=== PATIENT | female | born 1985 | race Two or more races ===

== ENCOUNTER 2025-05-05 02:45 | Emergency (ER) | payer MEDICAID ==
[~2025-05-05] VITALS: Ht 165.1 cm; Wt 96.6 kg
[2025-05-05 03:25] LABS: Basophils # (auto) 0 10 ^3/uL (0-0.2); Basophils % (auto) 0.4 % (0.0-2.0); Eosinophils # (auto) 0.2 10 ^3/uL (0-0.8); Eosinophils % (auto) 2.7 % (0.0-7.0); Hematocrit 34.1 % (36.0-46.0); Hemoglobin 11.4 g/dL (12.2-16.2); Lymphocytes # (auto) 2.7 10 ^3/uL (0.4-5.4); Lymphocytes % (auto) 31.9 % (10.0-50.0); Mean Corpuscular Hemoglobin 27.5 pg (28.0-32.0); Mean Corpuscular Hgb Conc. 33.3 g/dL (32.0-36.0); Mean Corpuscular Volume 82.4 fL (80.0-100.0); Monocytes # (auto) 0.6 10 ^3/uL (0-1.3); Monocytes % (auto) 7.5 % (0.0-12.0); Neutrophils # (auto) 4.9 10 ^3/uL (1.6-8.6); Neutrophils % (auto) 57.5 % (37.0-80.0); Platelet Count (auto) 364 10^3/uL (140-450); Red Blood Cells 4.13 10^6/uL (4.0-5.20); Red Cell Distribution Width 16.5 % (11.8-14.3); White Blood Cell 8.5 10^3/uL (4.4-10.8)
[2025-05-05 03:37] LABS: Chloride 105 mmol/L (98-107); Potassium 3.7 mmol/L (3.5-5.1); Sodium 139 mmol/L (136-145)
[2025-05-05 03:38] LABS: Anion Gap 9 (5-15); Calcium 9.2 mg/dL (8.7-10.4); Carbon Dioxide 25 mmol/L (20-31)
[2025-05-05 03:43] LABS: BUN/Creatinine Ratio 12.5 (10.0-20.0); Blood Urea Nitrogen 12 mg/dL (9-23); Glucose 90 mg/dL (74-106)
[2025-05-05 03:44] LABS: INR 0.92 (0.9-1.15); Partial Thromboplastin Time 29.3 SEC (24.5-34.5); Prothrombin Time 9.8 sec (9.3-11.8)
[2025-05-05] MEDS: medroxyPROGESTERone ACETATE 5 MG TAB PO ONE (03:45)
[2025-05-05 03:53] LABS: Urine Bacteria None Seen /hpf (None Seen); Urine Blood 3+ /uL (Negative); Urine Clarity Clear (Clear); Urine Color Light-Orange (Yellow); Urine Mucus FEW (None Seen); Urine Protein, UAD TRACE (Negative); Urine Specific Gravity 1.034 (1.001-1.035); Urine Squamous Epithelial Cell FEW /hpf (<5); Urine Urobilinogen Normal (Negative); Urine WBC 3 /HPF (0-5)
--- NOTE | 2025-05-05 03:54 | ED.PDOC ---
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 Patient reports on symptoms being ongoing follow initial onset of her normal menstrual cycle two months ago. Goes through 2-3 pads per day. She states on having large clot productions, today, and having one isolated episode of lightheadedness, yesterday. Patient endorses on being on NuvaRing control for the past 3x months. Upcoming OBGYN appointment three weeks. Denies having any nausea, vomiting, urinary symptoms, or further associated symptoms. 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 History: Ovarian Cysts, Other (Ovarian torsion status post surgical intervention) Family History Family History: Reviewed,noncontributory to illness Social History Smoker: Non-Smoker Alcohol: Denies ETOH Use Drugs: Denies Drug Use Lives In: Home All Other Systems: Reviewed and Negative (Comprehensive review of symptoms are negative unless otherwise stated in HPI) Physical Exam General Appearance: No Apparent Distress, Obese HEENT: Normal ENT Inspection, Pharynx Normal, TMs Normal Neck: Full Range of Motion, Non-Tender, Normal, Normal Inspection Respiratory: Chest Non-Tender, Lungs Clear, No Accessory Muscle Use, No Respiratory Distress, Normal Breath Sounds Cardiovascular: No Edema, No JVD, No Murmur, No Gallop, Normal Peripheral Pulses, Regular Rate/Rhythm Breast Exam: Deferred Gastrointestinal: No Organomegaly, Non Tender, No Pulsatile Mass, Normal Bowel Sounds, Soft Genitalia: Deferred Pelvic: Deferred Rectal: Deferred Extremities: No calf tenderness, Normal capillary refill, Normal inspection, Normal range of motion, Non-tender, No pedal edema Musculoskeletal : Apperance: Normal Neurologic: Alert, 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 Was a procedure done?: No Differential Diagnosis (SPA EXPERIENCE COORDINATOR) Vaginal Bleeding: Blood Loss Anemia, Dysmenorrhea, Ectopic , Hormonal, Menorrhagia, Menometrorrhagia, Menstrual Bleeding, PID, UTI X-Ray, Labs, Meds, VS Vital Signs Date Time Temp Pulse Resp B/P (MAP) Pulse Ox O2 Delivery O2 Flow Rate FiO2 05/05/25 04:50 78 14 97 Room Air* 0 21 05/05/25 04:45 98.3 84 14 138/82 (100) 98 98.3 05/05/25 03:00 98.3 77 12 144/95 (111) 98 98.3 Lab Test 05/05/25 03:40 05/05/25 03:19 Range/Units Urine Color Light-orange Yellow Urine Clarity Clear Clear Urine pH 6.0 5.0-9.0 Urine Specific [place] 1.034 1.001-1.035 Urine Protein Trace H Negative Urine Ketones Trace Negative Urine Blood 3+ H Negative /uL Urine Nitrite Negative Negative Urine Bilirubin Negative Negative Urine Urobilinogen Normal Negative mg/dL Urine Leukocyte Esterase Negative Negative /uL Urine RBC 42 0 - 4 /hpf Urine Microscopic WBC 3 0-5 /HPF Urine Squamous Epithelial Cells Few <5 /hpf Urine Bacteria None seen None Seen /hpf Urine Mucus Few None Seen Urine Glucose Normal Normal mg/dL Urine Test Negative Negative White Blood Count 8.5 4.4-10.8 10^3/uL Red Blood Count 4.13 4.0-5.20 10^6/uL Hemoglobin 11.4 L 12.2-16.2 g/dL Hematocrit 34.1 L 36.0-46.0 % Mean Corpuscular Volume 82.4 80.0-100.0 fL Mean Corpuscular Hemoglobin 27.5 L 28.0-32.0 pg Mean Corpuscular Hemoglobin Concent 33.3 32.0-36.0 g/dL Red Cell Distribution Width 16.5 H 11.8-14.3 % Platelet Count 364 140-450 10^3/uL Mean Platelet Volume 6.8 L 6.9-10.8 fL Neutrophils (%) (Auto) 57.5 37.0-80.0 % Lymphocytes (%) (Auto) 31.9 10.0-50.0 % Monocytes (%) (Auto) 7.5 0.0-12.0 % Eosinophils (%) (Auto) 2.7 0.0-7.0 % Basophils (%) (Auto) 0.4 0.0-2.0 % Neutrophils # (Auto) 4.9 1.6-8.6 10 ^3/uL Lymphocytes # (Auto) 2.7 0.4-5.4 10 ^3/uL Monocytes # (Auto) 0.6 0-1.3 10 ^3/uL Eosinophils # (Auto) 0.2 0-0.8 10 ^3/uL Basophils # (Auto) 0 0-0.2 10 ^3/uL Nucleated Red Blood Cells 0.0 % Prothrombin Time 9.8 9.3-11.8 sec Prothrombin Time INR 0.92 0.9-1.15 Activated Partial Thromboplast Time 29.3 24.5-34.5 SEC Sodium Level 139 136-145 mmol/L Potassium Level 3.7 3.5-5.1 mmol/L Chloride Level 105 98-107 mmol/L Carbon Dioxide Level 25 20-31 mmol/L Anion Gap 9 5-15 Blood Urea Nitrogen 12 9-23 mg/dL Creatinine 0.96 0.550-1.02 mg/dL Glomerular Filtration Rate Calc 77 >90 mL/min BUN/Creatinine Ratio 12.5 10.0-20.0 Serum Glucose 90 74-106 mg/dL Calcium Level 9.2 8.7-10.4 mg/dL Time of 1ST Reevaluation: 03:30 Reevaluation 1ST: Unchanged Patient Education/Counseling: Diagnosis, Treatment, Need For Follow Up Family Education/Counseling: No Family Present Departure 1 Departure Time of Disposition: 04:30 Impression: Primary Impression: Dysfunctional uterine bleeding Disposition: HOME / SELF CARE / HOMELESS Condition: Stable e-Prescriptions Medroxyprogesterone Acetate (PROVERA) 5 Mg Tab 1 TAB PO DAILY for 10 Days, #10 TAB 11 Refills Prov: JASMIN ANTONIO MD 05/05/25 Discharged With: Self Critical Care Note Critical Care Time?: No Stability Stability form required: No Heart Score Heart Score: Heart Score Response (Comments) Value History N/A 0 EKG N/A 0 Age N/A 0 Risk Factors N/A 0 Troponin N/A 0 Total 0 I personally scribed for JASMIN ANTONIO MD ([email or web address]) on 05/05/25 at 03:54. Electronically submitted by Smith Calhoun ([email or web address]). JASMIN ANTONIO MD May 05, 2025 03:54
[2025-05-05] MEDS ORDERED: MEDR5TAB28 PO (04:23)
[2025-05-05 04:45] VITALS: BP 138/82; TEMP 98.3
[2025-05-05 04:50] VITALS: PULSE 78; RESP 14; O2SAT 97
== END 2025-05-05 05:09 | disposition home or self-care (01) ==
LOC: ER 02:45
DX: N93.8 Other specified abnormal uterine and vaginal bleeding (principal); Z98.51 Tubal ligation status; Z88.2 Allergy status to sulfonamides; Z98.890 Other specified postprocedural states
CPT/HCPCS: 36415; 80048; 81001; 81025; 85025; 85610; 85730

== ENCOUNTER 2025-05-16 04:57 | Emergency (ER) | payer MEDICAID ==
[~2025-05-16] VITALS: Ht 165.1 cm; Wt 94.0 kg
[~2025-05-16 04:57] MED LIST: MEDR5TAB28 PO
--- NOTE | 2025-05-16 06:47 | ED.PDOC ---
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 Patient states that she was seen on 05/05/2025 for vaginal bleeding and was prescribed Depo-Provera for 10 days. Patient reports that she completed the regiment of Depo-Provera, but is still having persistent vaginal bleeding. Patient mentions that she made an appointment with an CONTACT CENTRE SUPERVISOR, but was given an appointment on 06/04/2025. Chief Complaint: Vaginal Bleed Time Seen by MD: 06:26 Reviewed Notes: Nurses Notes, Medications, Allergies Allergies: Coded Allergies: Sulfa Antibiotics (Verified Allergy, Unknown, 05/05/25) Home Meds Active Scripts Medroxyprogesterone Acetate (PROVERA) 5 Mg Tab, 1 TAB PO DAILY for 10 Days, #10 TAB 11 Refills Prov:JASMIN ANTONIO MD 05/05/25 Information Source: Patient Mode of Arrival: Ambulatory Timing: Weeks Prehospital treatment: None Severity: Moderate Bleeding Quality: Bright Red Onset Of Mass/Bleeding: Spontaneous Last Consensual [place]: Unknown Control: Depo-Provera Past Medical History PAST MEDICAL HISTORY: Anemia Surgical History: BTL, PRICING LEAD History: Ovarian Cysts, Other Constitutional: denies: chills, diaphoresis, fatigue, fever, malaise, sweats, weakness, others EENTM: denies: blurred vision, double vision, ear bleeding, ear discharge, ear drainage, ear pain, ear ringing, eye pain, eye redness, hearing loss, mouth pain, mouth swelling, nasal discharge, nose bleeding, nose congestion, nose pain, photophobia, tearing, throat pain, throat swelling, voice changes, others Respiratory: denies: cough, hemoptysis, orthopnea, SOB at rest, shortness of breath, SOB with excertion, stridor, wheezing, others Cardiovascular: denies: chest pain, dizzy spells, diaphoresis, Dyspnea on exertion, edema, irregular heart beat, left arm pain, lightheadedness, palpitations, PND, syncope, others Gastrointestinal: reports: abdominal pain; denies: abdomen distended, blood streaked bowels, constipated, diarrhea, dysphagia, difficulty swallowing, hematemesis, melena, nausea, poor appetite, poor fluid intake, rectal bleeding, rectal pain, vomiting, others Genitourinary: reports: abnormal vagina bleeding; denies: burning, dyspareunia, dysuria, flank pain, frequency, hematuria, incontinence, pain, , vagina discharge, urgency, others Neurological: denies: dizziness, fainting, headache, left sided numbness, left sided weakness, numbness, paresthesia, pre-existing deficit, right sided numbness, right sided weakness, seizure, speech problems, tingling, tremors, wea kness, others Musculoskeletal: denies: back pain, gout, joint pain, joint swelling, muscle pain, muscle stiffness, neck pain, others Integumetry: denies: bruises, change in color, change in hair/nails, dryness, l aceration, lesions, lumps, rash, wounds, others Allergic/Immunocompromised: denies: Difficulty Healing, Frequent Infections, Hives, Itching, others Hematologic/Lymphatic: denies: anemia, blood clots, easy bleeding, easy bruising, swollen glands, others Endocrine: denies: excessive hunger, excessive sweating, excessive thirst, excessive urination, flushing, intolerance to cold, intolerance to heat, unexplained weight gain, unexplained weight loss, others Psychiatric: denies: anxiety, bipolar disorder, depression, hopeless, panic disorder, schizophrenia, sleepless, suicidal, others All Other Systems: Reviewed and Negative Physical Exam General Appearance: Moderate Distress, Normal HEENT: Normal ENT Inspection, Pharynx Normal, TMs Normal Neck: Full Range of Motion, Non-Tender, Normal, Normal Inspection Respiratory: Chest Non-Tender, Lungs Clear, No Accessory Muscle Use, No Respiratory Distress, Normal Breath Sounds Cardiovascular: No Edema, No JVD, No Murmur, No Gallop, Normal Peripheral Pulses, Regular Rate/Rhythm Breast Exam: Deferred Gastrointestinal: No Organomegaly, Non Tender, No Pulsatile Mass, Normal Bowel Sounds, Soft Genitalia: Deferred Pelvic: Deferred Rectal: Deferred Extremities: No calf tenderness, Normal capillary refill, Normal inspection, Normal range of motion, Non-tender, No pedal edema Musculoskeletal : Apperance: Normal Neurologic: Alert, roller hand II-XII nml as Tested, No Motor Deficits, Normal Affect, Normal Mood, No Sensory Deficits Cerebellar Function: Normal Reflexes: Normal Skin: Dry, Normal Color, Warm Peripheral Pulses: 3+ Radial (R), 3+ Radial (L) Lymphatic: No Adenopathy Was a procedure done? Was a procedure done?: No Differential Diagnosis (PRICING LEAD) Vaginal Bleeding: Menometrorrhagia, Menstrual Bleeding, Myomatous Uterus X-Ray, Labs, Meds, VS Vital Signs Date Time Temp Pulse Resp B/P (MAP) Pulse Ox O2 Delivery O2 Flow Rate FiO2 05/16/25 08:04 98.0 78 16 115/75 (88) 97 98.0 05/16/25 08:04 78 16 97 Room Air 05/16/25 05:17 98.0 93 16 124/74 (91) 96 98.0 Lab Test 05/16/25 07:39 Range/Units Urine Color Yellow Yellow Urine Clarity Turbid H Clear Urine pH 5.5 5.0-9.0 Urine Specific [place] 1.037 H 1.001-1.035 Urine Protein Trace H Negative Urine Ketones Trace Negative Urine Blood 2+ H Negative /uL Urine Nitrite Negative Negative Urine Bilirubin Negative Negative Urine Urobilinogen Normal Negative mg/dL Urine Leukocyte Esterase Negative Negative /uL Urine RBC 1 0 - 4 /hpf Urine Microscopic WBC 2 0-5 /HPF Urine Squamous Epithelial Cells Few <5 /hpf Urine Bacteria Few H None Seen /hpf Urine Mucus Few None Seen Urine Glucose Normal Normal mg/dL Patient alert. Complaining of vaginal bleeding. Vitals stable. Answering questions Was seen here recently for the same symptom. Was given Provera. Possibly need hysterectomy. Reviewed her previous visit. She is not anemic. Peridot in color. Good nailbeds. No sign of any anemia. Ultrasound does not show any acute process. Explained to the patient. Was told to follow up with her OBGYN. Was told to follow up with her primary care physician. Was told to come back if there is any problem. Time of 1ST Reevaluation: 06:56 Reevaluation 1ST: Unchanged Patient Education/Counseling: Diagnosis, Treatment, Prognosis Family Education/Counseling: No Family Present Departure 1 Departure Time of Disposition: 07:40 Impression: Primary Impression: Dysfunctional uterine bleeding Additional Impression: Uterine fibroid Qualified Codes: D25.9 - Leiomyoma of uterus, unspecified Disposition: 01 HOME / SELF CARE / HOMELESS Condition: Good e-Prescriptions Medroxyprogesterone Acetate (PROVERA) 5 Mg Tab 2 TAB PO DAILY for 5 Days, #10 TAB 11 Refills Prov: PHILIPPE HARRIS MD 05/16/25 Discharged With: Self Critical Care Note Critical Care Time?: No Stability Stability form required: No Heart Score Heart Score: Heart Score Response (Comments) Value History N/A 0 EKG N/A 0 Age N/A 0 Risk Factors N/A 0 Troponin N/A 0 Total 0 I personally scribed for PHILIPPE HARRIS MD ([email or web address]) on 05/16/25 at 06:46. E lectronically submitted by Pastor Nolasco ([email or web address]). PHILIPPE HARRIS MD May 16, 2025 06:46
[2025-05-16 08:01] LABS: Urine Bacteria FEW /hpf (None Seen); Urine Blood 2+ /uL (Negative); Urine Clarity Turbid (Clear); Urine Color Yellow (Yellow); Urine Mucus FEW (None Seen); Urine Protein, UAD TRACE (Negative); Urine Specific Gravity 1.037 (1.001-1.035); Urine Squamous Epithelial Cell FEW /hpf (<5); Urine Urobilinogen Normal (Negative); Urine WBC 2 /HPF (0-5); Urine pH 5.5 (5.0-9.0)
--- NOTE | 2025-05-16 08:20 | DVH ---
INDICATION: FIBROIDS TECHNIQUE: Multiple real-time grayscale transabdominal and transvaginal sonographic images along with color and duplex Doppler of the uterus and ovaries were obtained. COMPARISON: None FINDINGS: The uterus measures 10.9 x 6.1 x 6.4 cm. The endometrial stripe measures 1.4 cm. Uterine fi broids are present 4.3 cm. Right ovary measures 2.8 x 1.9 x 1.8 cm with normal Doppler color flow. Right ovarian probable hemor rhagic cyst measures 3.5 cm. IMPRESSION: Uterine fibroid is present in the fundus measuring 4.3 cm. Probable right ovarian hemorrhagic cyst measures 3.5 cm. Recommend repeat ultrasound in 6 weeks to assess for complete resolution.
[2025-05-16] MEDS ORDERED: MEDR5TAB28 PO (09:53)
[2025-05-16 10:03] VITALS: BP 111/80; PULSE 77; RESP 18; TEMP 98.1; O2SAT 96
== END 2025-05-16 10:04 | disposition home or self-care (01) ==
LOC: ER 04:57
DX: D25.9 Leiomyoma of uterus, unspecified (principal); N93.8 Other specified abnormal uterine and vaginal bleeding; Z86.2 Personal history of diseases of the blood and blood-forming organs and certain disorders involving the immune mechanism; Z98.51 Tubal ligation status; Z98.890 Other specified postprocedural states; Z87.42 Personal history of other diseases of the female genital tract; Z88.2 Allergy status to sulfonamides; Z79.3 Long term (current) use of hormonal contraceptives; Z79.899 Other long term (current) drug therapy
CPT/HCPCS: 76830; 76856; 81001

== ENCOUNTER 2025-06-13 00:08 | Emergency (ER) | payer MEDICAID ==
[~2025-06-13] VITALS: Ht 165.1 cm; Wt 93.0 kg
--- NOTE | 2025-06-13 00:32 | ED.PDOC ---
History of Present Illness HPI Comments 39 year old female with a Hx of Anemia presents to the ED for the c/c of Left eye Blurry vision w/ associated pressure. Pt states that she had an appointment w/ her ironworker machine operator this morning where they found veinous engorgement and Micro hemorrhages in her left eye. Pt reports that she currently sees 2 small back dots, with "lightning". Pt denies any NYE, N/V/D, photophobia, or any other associated symptoms at this time. Time Seen by MD: 00:26 Reviewed Notes: Nurses Notes, Medications, Allergies Allergies: Coded Allergies: Sulfa Antibiotics (Verified Allergy, Unknown, 05/05/25) Home Meds Active Scripts Medroxyprogesterone Acetate (PROVERA) 5 Mg Tab, 2 TAB PO DAILY for 5 Days, #10 TAB 11 Refills Prov:PHILIPPE HARRIS MD 05/16/25 Medroxyprogesterone Acetate (PROVERA) 5 Mg Tab, 1 TAB PO DAILY for 10 Days, #10 TAB 11 Refills Prov:JASMIN ANTONIO MD 05/05/25 Information Source: Patient Mode of Arrival: Ambulatory Severity: Moderate Timing: Days Duration: Intermittent, Days Prehospital treatment: None Past Medical History PAST MEDICAL HISTORY: Anemia Surgical History: BTL, 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 History: Ovarian Cysts, Other Social History Smoker: Non-Smoker Alcohol: Denies ETOH Use Drugs: Denies Drug Use Lives In: Home Constitutional: denies: chills, diaphoresis, fatigue, fever, malaise, sweats, weakness, others EENTM: reports: blurred vision, eye pain; denies: double vision, ear bleeding, ear discharge, ear drainage, ear pain, ear ringing, eye redness, hearing loss, mouth pain, mouth swelling, nasal discharge, nose bleeding, nose congestion, nose pain, photophobia, tearing, throat pain, throat swelling, voice changes, others Respiratory: denies: cough, hemoptysis, orthopnea, SOB at rest, shortness of breath, SOB with excertion, stridor, wheezing, others Cardiovascular: denies: chest pain, dizzy spells, diaphoresis, Dyspnea on exertion, edema, irregular heart beat, left arm pain, lightheadedness, palp itations, PND, syncope, others Gastrointestinal: denies: abdomen distended, abdominal pain, blood streaked bowels, constipated, diarrhea, dysphagia, difficulty swallowing, hematemesis, melena, nausea, poor appetite, poor fluid intake, rectal bleeding, rectal pain, vomiting, others Genitourinary: denies: abnormal vagina bleeding, burning, dyspareunia, dysuria, flank pain, frequency, hematuria, incontinence, pain, , vagina discharge, urgency, others Neurological: denies: dizziness, fainting, headache, left sided numbness, left sided weakness, numbness, paresthesia, pre-existing deficit, right sided numbness, right sided weakness, seizure, speech problems, tingling, tremors, weakness, others Musculoskeletal: denies: back pain, gout, joint pain, joint swelling, muscle pain, muscle stiffness, neck pain, others Integumetry: denies: bruises, change in color, change in hair/nails, dryness, laceration, lesions, lumps, rash, wounds, others Allergic/Immunocompromised: denies: Difficulty Healing, Frequent Infections, Hives, Itching, others Hematologic/Lymphatic: denies: anemia, blood clots, easy bleeding, easy br uising, swollen glands, others Endocrine: denies: excessive hunger, excessive sweating, excessive thirst, excessive urination, flushing, intolerance to cold, intolerance to heat, unexplained weight gain, unexplained weight loss, others Psychiatric: denies: anxiety, bipolar disorder, depression, hopeless, panic disorder, schizophrenia, sleepless, suicidal, others All Other Systems: Reviewed and Negative Physical Exam General Appearance: Moderate Distress, Normal HEENT: Normal ENT Inspection, Pharynx Normal, TMs Normal, Other (Left eye veinous engorgement and Micro hemorrhages) Neck: Full Range of Motion, Non-Tender, Normal, Normal Inspection Respiratory: Chest Non-Tender, Lungs Clear, No Accessory Muscle Use, No Respiratory Distress, Normal Breath Sounds Cardiovascular: No Edema, No JVD, No Murmur, No Gallop, Normal Peripheral Pulses, Regular Rate/Rhythm Breast Exam: Deferred Gastrointestinal: Non Tender, No Pulsatile Mass, Normal Bowel Sounds, Soft Genitalia: Deferred Pelvic: Deferred Rectal: Deferred Extremities: No calf tenderness, Normal capillary refill, Normal inspection, Normal range of motion, Non-tender, No pedal edema Musculoskeletal : Apperance: Normal Neurologic: Alert, No Motor Deficits, Normal Affect, Normal Mood, No Sensory Deficits Cerebellar Function: Normal Reflexes: Normal Skin: Dry, Normal Color, Warm Lymphatic: No Adenopathy Was a procedure done? Was a procedure done?: No Differential Dx Considerations may include: Differential diagnosis includes but not limited to: intracranial hypertension, ischemic stroke, intracranial hemorrhage, acute retinal injury, end-organ failure and others X-Ray, Labs, Meds, VS Vital Signs Date Time Temp Pulse Resp B/P (MAP) Pulse Ox O2 Delivery O2 Flow Rate FiO2 06/13/25 00:50 Room Air* 0 21 06/13/25 00:50 97.7 82 18 122/74 (90) 97 97.7 06/13/25 00:41 97.9 80 18 134/96 (109) 96 97.9 Lab Test 06/13/25 00:35 Range/Units White Blood Count 8.9 4.4-10.8 10^3/uL Red Blood Count 3.93 L 4.0-5.20 10^6/uL Hemoglobin 11.0 L 12.2-16.2 g/dL Hematocrit 32.8 L 36.0-46.0 % Mean Corpuscular Volume 83.4 80.0-100.0 fL Mean Corpuscular Hemoglobin 28.0 28.0-32.0 pg Mean Corpuscular Hemoglobin Concent 33.6 32.0-36.0 g/dL Red Cell Distribution Width 15.6 H 11.8-14.3 % Platelet Count 414 140-450 10^3/uL Mean Platelet Volume 6.7 L 6.9-10.8 fL Neutrophils (%) (Auto) 58.4 37.0-80.0 % Lymphocytes (%) (Auto) 30.3 10.0-50.0 % Monocytes (%) (Auto) 7.7 0.0-12.0 % Eosinophils (%) (Auto) 2.9 0.0-7.0 % Basophils (%) (Auto) 0.7 0.0-2.0 % Neutrophils # (Auto) 5.2 1.6-8.6 10 ^3/uL Lymphocytes # (Auto) 2.7 0.4-5.4 10 ^3/uL Monocytes # (Auto) 0.7 0-1.3 10 ^3/uL Eosinophils # (Auto) 0.3 0-0.8 10 ^3/uL Basophils # (Auto) 0.1 0-0.2 10 ^3/uL Nucleated Red Blood Cells 0.1 % Prothrombin Time 9.8 9.3-11.8 sec Prothrombin Time INR 0.92 0.9-1.15 Activated Partial Thromboplast Time 27.8 24.5-34.5 SEC Sodium Level 140 136-145 mmol/L Potassium Level 3.6 3.5-5.1 mmol/L Chloride Level 107 98-107 mmol/L Carbon Dioxide Level 24 20-31 mmol/L Anion Gap 9 5-15 Blood Urea Nitrogen 11 9-23 mg/dL Creatinine 0.85 0.550-1.02 mg/dL Glomerular Filtration Rate Calc 89 >90 mL/min BUN/Creatinine Ratio 12.9 10.0-20.0 Serum Glucose 95 74-106 mg/dL Calcium Level 8.8 8.7-10.4 mg/dL Total Bilirubin 0.3 0.2-1.0 mg/dL Aspartate Amino Transferase (AST) 41 H 13-40 U/L Alanine Aminotransferase (ALT) 173 H 7-40 U/L Alkaline Phosphatase 69 46-116 U/L Total Protein 6.4 5.7-8.2 g/dL Albumin 3.9 3.2-4.8 g/dL Time of 1ST Reevaluation: 00:57 Reevaluation 1ST: Unchanged Patient Education/Counseling: Diagnosis, Treatment, Need For Follow Up Family Education/Counseling: No Family Present SEPSIS Sepsis Screen Physician Orders Electrocardigram (06/13/25 00:26) Head Without Contrast (06/13/25 00:26) Vital Signs Date Time Temp Pulse Resp B/P (MAP) Pulse Ox O2 Delivery O2 Flow Rate FiO2 06/13/25 00:50 Room Air* 0 21 06/13/25 00:50 97.7 82 18 122/74 (90) 97 97.7 06/13/25 00:41 97.9 80 18 134/96 (109) 96 97.9 Laboratory Tests Test 06/13/25 00:35 White Blood Count 8.9 10^3/uL (4.4-10.8) Departure 1 Departure Time of Disposition: 01:35 Impression: Primary Impression: Retinopathy Disposition: 02 SHORT TERM HOSPITAL Condition: Guarded Discharged With: Self Comments Blurred Vision in Left Eye with Retinal Abnormalities Chief Complaint: Blurred vision in the left eye History of Present Illness: Patient is a 39-year-old female with minimal prior medical history who presents to the ED with complaints of blurred vision in the left eye. Duration of symptoms is not specified. She recently visited an senior sales engineer who performed a fundus examination and identified venous engorgement and retinal hemorrhages, more pronounced in the left eye than the right. The patient has a history of dysfunctional uterine bleeding and anemia. No recent changes in medications, trauma, or other associated symptoms were reported. Given the concerning findings on retinal examination, the patient was referred to the ED for further evaluation. Review of Systems: Constitutional: Not documented HEENT: Positive for blurred vision in the left eye, retinal hemorrhages and venous engorgement noted on fundoscopic exam Cardiovascular: Not documented Respiratory: Not documented Gastrointestinal: Not documented Genitourinary: History of dysfunctional uterine bleeding Musculoskeletal: Not documented Neurological: Not documented Psychiatric: Not documented Hematologic: History of anemia Physical Exam: General: Limited documentation available HEENT: Fundoscopic exam (performed by senior sales engineer) showed venous engorgement and retinal hemorrhages, left greater than right Remainder of physical exam not documented Lab Results: CBC: Hemoglobin 11.0 g/dL, Hematocrit 32.8% LFTs: AST 41 (elevated), ALT 173 (elevated) Chemistry panel: Otherwise unremarkable Imaging and Other Relevant Results: CT Head: No acute pathology Medical Decision Making: Summary Statement: 39-year-old female with blurred vision in the left eye, retinal hemorrhages and venous engorgement on fundoscopic exam, history of anemia, and elevated liver enzymes requiring further ophthalmologic evaluation. Problem List: 1. Blurred vision with retinal abnormalities, 2. Elevated liver enzymes, 3. Anemia, 4. Dysfunctional uterine bleeding Differential Diagnosis: Hypertensive retinopathy, central retinal vein occlusion, diabetic retinopathy, retinal vasculitis, blood dyscrasias, malignant hypertension, autoimmune disorders affecting the retina ED Course: Patient presented with blurred vision in the left eye. Prior optometry evaluation revealed concerning retinal findings. Laboratory studies sh owed mild anemia and elevated liver enzymes. CT head was negative for acute pathology. After ED evaluation, decision was made to transfer the patient for ophthalmology consultation and admission. Assessment and Plan: 1. Blurred Vision with Retinal Abnormalities: - Fundoscopic exam shows venous engorgement and retinal hemorrhages, left > right - Concerning for hypertensive retinopathy versus other retinal pathology - Transfer for ophthalmology consultation and admission - Urgent ophthalmology evaluation to determine exact etiology and appropriate treatment 2. Elevated Liver Enzymes (AST 41, ALT 173): - Incidental finding on laboratory workup - Recommend follow-up with primary care for further evaluation - Consider hepatology referral if persistently elevated - Additional liver function testing as an outpatient 3. Anemia (Hgb 11.0, Hct 32.8%): - Mild anemia, likely related to history of dysfunctional uterine bleeding - Recommend outpatient follow-up with primary care or gynecology - Consider oral iron supplementation 4. Dysfunctional Uterine Bleeding: - Chronic issue, likely contributing to anemia - Recommend gynecology follow-up after discharge Disposition: Transfer to higher level of care for ophthalmology consultation and admission Additional Notes: Patient requires transfer for ophthalmology consultation and admission. Billing Information: ICD-10: H53.8 - Other visual disturbances (Blurred vision) ICD-10: H35.89 - Other specified retinal disorders ICD-10: K76.0 - Fatty (change of) liver, not elsewhere classified ICD-10: D50.9 - Iron deficiency anemia, unspecified ICD-10: N93.8 - Other specified abnormal uterine and vaginal bleeding Critical Care Note Critical Care Time?: No Stability Stability form required: No Heart Score Heart Score: Heart Score Response (Comments) Value History N/A 0 EKG N/A 0 Age N/A 0 Risk Factors N/A 0 Troponin N/A 0 Total 0 I personally scribed for JASMIN ANTONIO MD ([email or web address]) on 06/13/25 at 00:32. Electronically submitted by Charly Ch ([email or web address]). JASMIN ANTONIO MD Jun 13, 2025 00:32
[2025-06-13 00:48] LABS: Hematocrit 32.8 % (36.0-46.0); Hemoglobin 11.0 g/dL (12.2-16.2); Mean Corpuscular Hemoglobin 28.0 pg (28.0-32.0); Mean Corpuscular Volume 83.4 fL (80.0-100.0); Nucleated Red Blood Cells % 0.1 %
[2025-06-13 01:04] LABS: INR 0.92 (0.9-1.15); Partial Thromboplastin Time 27.8 SEC (24.5-34.5); Prothrombin Time 9.8 sec (9.3-11.8)
[2025-06-13 01:05] LABS: Albumin 3.9 g/dL (3.2-4.8); Alkaline Phosphatase 69 U/L (46-116); Anion Gap 9 (5-15); BUN/Creatinine Ratio 12.9 (10.0-20.0); Blood Urea Nitrogen 11 mg/dL (9-23); Calcium 8.8 mg/dL (8.7-10.4); Carbon Dioxide 24 mmol/L (20-31); Glucose 95 mg/dL (74-106); Potassium 3.6 mmol/L (3.5-5.1); Sodium 140 mmol/L (136-145); Total Protein 6.4 g/dL (5.7-8.2)
[2025-06-13 01:06] LABS: Bilirubin, Total 0.3 mg/dL (0.2-1.0)
[2025-06-13 01:07] LABS: Alanine Aminotransferase 173 U/L (7-40); Chloride 107 mmol/L (98-107)
--- NOTE | 2025-06-13 01:17 | DVH ---
EXAM: CT HEAD WITHOUT CONTRAST INDICATION: headache, blurred vision TECHNIQUE: CT of the head without intravenous contrast. Radiation Dose : 1. Head: CT Dose: CTDI volume is 54.77 mGy. Dose-length product is 969.84 mGy*cm The dose indicators for CT are the volume Computed Tomography (CT) Dose Index (CTDIvol) and the Dose Length Product (DLP), and are measured in units of mGy and mGy-cm, respectively. These indicators are not patient dose, but values generated from the CT scanner acquisition factors. The report includes radiation exposure data for exposures received during this examination. COMPARISON: None FINDINGS: There is no evidence of acute intracranial hemorrhage, extra-axial collection, mass effect, midline s hift, herniation or hydrocephalus. The ventricles, sulci and cisterns are age appropriate. The dorantes-white differentiation is intact. The visualized paranasal sinuses and mastoid air cells are clear. The surrounding soft tissues and osseous structures are unremarkable. IMPRESSION: 1. No acute intracranial abnormality. Radiation optimization: All CT scans at this facility use at least one of these dose optimization leeann hniques: automated exposure control mA and/or kV adjustment per patient size (includes targeted exam s where dose is matched to clinical indication) or iterative reconstruction.
[2025-06-13 02:00] VITALS: BP 115/75; PULSE 73; RESP 20; TEMP 97.5; O2SAT 97
== END 2025-06-13 03:27 | disposition short-term general hospital (02) ==
LOC: ER 00:08
DX: H35.62 Retinal hemorrhage, left eye (principal); D64.9 Anemia, unspecified; Z98.51 Tubal ligation status; Z88.2 Allergy status to sulfonamides; Z98.890 Other specified postprocedural states
CPT/HCPCS: 36415; 70450; 80053; 85025; 85610; 85730